=== PATIENT | male | born 1995 | race Asian ===

== ENCOUNTER 2018-06-19 23:52 | Emergency (ER) | payer OTHER ==
[2018-06-20] MEDS ORDERED: LIDOCAINE 1% MDV 20ML VIAL IM (01:45)
[2018-06-20] MEDS: AUGMENTIN 875 MG TAB PO (02:45)
[2018-06-20] MEDS: RABIES VACCINE HUMAN 2.5 INTERNATIONAL UNITS/ML VIAL (90675) IM (03:10)
[2018-06-20] MEDS: RABIES IMMUNE GLOBULIN 1500 INTERNATIONAL UNITS/10 ML VIAL (90375) IM (03:11)
== END 2018-06-20 03:39 | disposition home or self-care (01) ==
LOC: M ED 23:52
DX: S01.152A Open bite of left eyelid and periocular area, initial encounter (principal); W54.0XXA Bitten by dog, initial encounter; Y92.410 Unspecified street and highway as the place of occurrence of the external cause
CPT/HCPCS: 90675

== ENCOUNTER 2018-06-22 10:58 | Emergency (ER) | payer OTHER ==
[2018-06-22] MEDS: RABIES VACCINE HUMAN 2.5 INTERNATIONAL UNITS/ML VIAL (90675) IM (11:26)
== END 2018-06-22 11:48 | disposition home or self-care (01) ==
LOC: M ED 10:58
DX: Z20.3 Contact with and (suspected) exposure to rabies (principal); Z23 Encounter for immunization; S01.152D Open bite of left eyelid and periocular area, subsequent encounter; W54.0XXD Bitten by dog, subsequent encounter; Y92.89 Other specified places as the place of occurrence of the external cause
CPT/HCPCS: 90471

== ENCOUNTER 2018-06-26 15:59 | Emergency (ER) | payer OTHER ==
[2018-06-26] MEDS: RABIES VACCINE HUMAN 2.5 INTERNATIONAL UNITS/ML VIAL (90675) IM (16:12)
== END 2018-06-26 16:38 | disposition home or self-care (01) ==
LOC: M ED 15:59
DX: Z20.3 Contact with and (suspected) exposure to rabies (principal)
CPT/HCPCS: 90675

== ENCOUNTER 2018-07-03 17:09 | Emergency (ER) | payer OTHER ==
[2018-07-03] MEDS: RABIES VACCINE HUMAN 2.5 INTERNATIONAL UNITS/ML VIAL (90675) IM (17:54)
== END 2018-07-03 18:23 | disposition home or self-care (01) ==
LOC: M ED 17:09
DX: Z20.3 Contact with and (suspected) exposure to rabies (principal); Z23 Encounter for immunization
CPT/HCPCS: 90675

== ENCOUNTER 2019-07-24 15:20 | Emergency (ER) | payer OTHER ==
[~2019-07-24] VITALS: Ht 180.3 cm; Wt 90.9 kg
[~2019-07-24 15:20] MED LIST: AUGM875T28 PO
[2019-07-24] MEDS ORDERED: METHOCARBAMOL 750 MG TAB PO ONE ×2 (17:30→18:30)
[2019-07-24] MEDS ORDERED: KETOROLAC 60 MG/2 ML VIAL (J1885) IM ONE (17:30)
[2019-07-24] MEDS ORDERED: BACL10TA2 PO (18:26)
[2019-07-24] MEDS ORDERED: KETO10TAB PO (18:26)
[2019-07-24] MEDS ORDERED: KETOROLAC TROMETHAMINE 10 MG TAB PO ONE (18:30)
[2019-07-24 18:31] VITALS: BP 123/78
== END 2019-07-24 18:41 | disposition home or self-care (01) ==
LOC: M ED 15:20
DX: S39.012A Strain of muscle, fascia and tendon of lower back, initial encounter (principal); Y93.G3 Activity, cooking and baking; Y92.019 Unspecified place in single-family (private) house as the place of occurrence of the external cause
CPT/HCPCS: 96372; 99284; J1885